=== PATIENT | female | born 1995 | race Caucasian/White ===

== ENCOUNTER 2017-05-22 19:14 | Emergency (ER) | payer BC, OTHER ==
[~2017-05-22] VITALS: Ht 165.1 cm; Wt 61.5 kg
[2017-05-22 19:21] VITALS: BP 111/79
== END 2017-05-22 20:50 | disposition home or self-care (01) ==
LOC: ED 20:44
DX: S80.01XA Contusion of right knee, initial encounter (principal); W21.89XA Striking against or struck by other sports equipment, initial encounter; Y93.71 Activity, boxing; Y99.8 Other external cause status; Y92.328 Other athletic field as the place of occurrence of the external cause
CPT/HCPCS: 29505; 99284

== ENCOUNTER 2018-08-15 12:31 | Emergency (ER) | payer OTHER ==
[~2018-08-15] VITALS: Ht 165.1 cm; Wt 62.2 kg
[2018-08-15 12:36] VITALS: BP 111/72
--- NOTE | 2018-08-15 13:05 | NUR ---
PT C/O VB WITH PREGNANY AT 6 WEEKS. AT BEDSIDE. NAD NOTED . CALL LIGHT WETHIN REACH.
--- NOTE | 2018-08-15 14:13 | NUR ---
PT STATES SHE IS UNABLE TO PROVIDE URINE SAMPLE AT THIS TIME.
[2018-08-15] MEDS ORDERED: PREN1TAB62 PO (15:14)
== END 2018-08-15 15:15 | disposition home or self-care (01) ==
LOC: ED 14:45
DX: O20.0 Threatened abortion (principal); F32.9 Major depressive disorder, single episode, unspecified; Z3A.01 Less than 8 weeks gestation of pregnancy
CPT/HCPCS: 36415; 76801; 84702; 86901; 99284